=== PATIENT | male | born 1955 | race Caucasian/White ===

== ENCOUNTER 2016-12-15 11:02 | Emergency (ER) | payer MEDICARE, OTHER ==
[~2016-12-15] VITALS: Ht 182.9 cm; Wt 81.6 kg
[~2016-12-15 11:02] MED LIST: ATEN50TA PO; CLON0.1T12 PO; FENT1PAT21 TD; HYDR4TAB PO; LISI-334 PO; LISI10TA2 PO; MAGN400O4 PO; MORP15TA PO; NAPR500T3 PO; SIMV20TA3 PO; VALIUM10 MG PO; [UNRECOGNIZED DRUG - CODE] BC
--- NOTE | 2016-12-15 12:23 | PHYS DOC ---
Past Medical History Past Medical History: High Cholesterol, Hypertension, Migraines, Other Additional Past Medical Histor: CHRONIC BACK PAIN, Sciatica Past Surgical History: Other Additional Past Surgical Histo: lt ARM, BACK X 8, Sinus surgery Alcohol Use: None Drug Use: None Adult General Chief Complaint Chief Complaint: BACK PAIN OR INJURY HPI HPI Patient is a 61 year old male who presents with acute on chronic low back pain. Patient has had low back pain for the past 25 years, for which she says he has undergone surgeries. He says last night he fell down 7 steps ~8pm after his feet got caught up. Denies hitting his head or loss of consciousness. He has been ambulatory since. He presents now with sharp lower back pain. He says he has been taking Robaxin and naproxen with insufficient relief. No numbness or weakness, no loss of bowel or bladder continence. No other acute complaints. Review of Systems Review of Systems Constitutional: Denies fever or chills Respiratory: Denies cough or shortness of breath Cardiovascular: Denies chest pain GI: Denies abdominal pain, nausea, vomiting, or diarrhea Musculoskeletal: Acute on chronic lumbar pain Neurologic: Denies headache, focal weakness or sensory changes. No loss of bowel /bladder continence Current Medications Current Medications Current Medications Medications (Trade) Dose Ordered Sig/Nicolas Start Time Stop Time Status Last Admin Dose Admin Ketorolac Tromethamine (Toradol Im) 30 mg 1X ONCE 12/15/16 13:00 12/15/16 13:01 DC 12/15/16 12:37 30 MG Morphine Sulfate 6 mg 1X ONCE 12/15/16 14:00 12/15/16 14:01 DC Oxycodone/ Acetaminophen (Percocet 5/325) 2 tab 1X ONCE 12/15/16 13:00 12/15/16 13:01 DC 12/15/16 12:36 2 TAB Allergies Allergies Allergies Coded Allergies Type Severity Reaction Last Updated Verified nafcillin Allergy Severe Anaphylaxis 01/30/14 Yes cyclobenzaprine Allergy Intermediate blurs eyes 02/10/16 Yes dextromethorphan Allergy Intermediate Rash 01/30/14 Yes ibuprofen Allergy Intermediate Rash 01/30/14 Yes Physical Exam Physical Exam Constitutional: Well developed, well nourished, no acute distress, non-toxic appearance HENT: Normocephalic, atraumatic, bilateral external ears normal Eyes: PERRL, EOMI, conjunctiva normal, no discharge Neck: Normal range of motion, no stridor Cardiovascular: Heart rate normal, regular rhythm, no murmur Lungs & Thorax: Bilateral breath sounds clear to auscultation Abdomen: Bowel sounds normal, soft, non-distended, no TTP Skin: Warm, dry, no erythema, no rash Back: Generalized lumbar tenderness on palpation, midline scar noted, no stepoff or deformity, no skin lesion Extremities: No obvious deformity, no edema. Extremities examined without TTP, bruising, or deformity noted Neurologic: Alert and oriented X 3, GCS 15, strength intact and symmetrical throughout in BLE, sensation to light touch intact throughout Current Patient Data Vital Signs Vital Signs Date Time Temp Pulse Resp B/P Pulse Ox O2 Delivery O2 Flow Rate FiO2 12/15/16 11:09 97.8 81 20 98 Room Air 97.8 EKG EKG [] Radiology/Procedures Radiology/Procedures X-ray lumbar spine: IMPRESSION: 1. Previous posterior spinal fusion and instrumentation from L4 through S1. 2. No acute bony abnormality is detected. Course & Med Decision Making Course & Med Decision Making Pertinent Labs and Imaging studies reviewed. (See chart for details) Patient is 61-year-old male who presents with acute on chronic low back pain after fall last night. No red flag symptoms or findings on physical exam. Will check x-ray of lumbar spine. Oral pain meds and shot of toradol ordered for pain control. Imaging results as above. Discussed results with patient, who continues to have pain. IM morphine ordered. Patient requesting admission for pain control; I discussed the case with Dr. Fabian, patient's PCP, we will not admit at this time. Patient discharged home with course of pain medication, instructions for follow-up, return precautions. Dragon Disclaimer Dragon Disclaimer This electronic medical record was generated, in whole or in part, using a voice recognition dictation system. Departure Departure Impression: Primary Impression: Acute exacerbation of chronic low back pain Disposition: 01 HOME, SELF-CARE Condition: STABLE Referrals: ROSARIO FABIAN MD (PCP) Patient Instructions: Chronic Back Pain Additional Instructions: Thank you for allowing us to provide care today in the Emergency Department. Take the provided medication as directed. Use caution after taking this medication as it can make you drowsy. Schedule a follow up appointment with your primary care doctor. Return promptly to the Emergency Department if you develop any new or concerning symptoms. Scripts Oxycodone/Apap 5-325 (Percocet 5-325 Mg Tablet)1 Each Tablet1 Tab PO PRN Q6HRS PRN PAIN #15 TAB Ref 0 Prov:LEOLA STARK MD 12/15/16 LEOLA STARK MD Dec 15, 2016 12:23
[2016-12-15] MEDS ORDERED: OXYCODONE/APAP 5/325 TABLET. PO ONE (13:00)
[2016-12-15] MEDS ORDERED: KETOROLAC TROMETHAMINE 60 MG/2 ML SYRINGE. IM ONE (13:00)
--- NOTE | 2016-12-15 13:10 | RAD ---
Lumbar spine, 3 views, 12/15/2016: History: Low back pain after fall Comparison is made to a study from 11/20/2016. There are bilateral pedicle screws in place at L4, L5 and S1 attached to longitudinally oriented posterior fixation rods. These fixation devices are unchanged. The lumbar vertebral heights are well-maintained. There is moderate disc space narrowing at L4-5 and L5-S1. There are mild scattered spurs in the upper lumbar spine. No acute fracture or dislocation is identified. IMPRESSION: 1. Previous posterior spinal fusion and instrumentation from L4 through S1. 2. No acute bony abnormality is detected.
[2016-12-15] MEDS ORDERED: MORPHINE SULFATE 4 MG/ML DISP.SYRIN. IM ONE (14:00)
[2016-12-15] MEDS ORDERED: OXYC-323 PO (14:20)
[2016-12-15 14:46] VITALS: BP 167/92
== END 2016-12-15 14:48 | disposition home or self-care (01) ==
LOC: ER 11:02
DX: G89.29 Other chronic pain (principal); M54.5 Low back pain; I10 Essential (primary) hypertension; E78.00 Pure hypercholesterolemia, unspecified; G43.909 Migraine, unspecified, not intractable, without status migrainosus; Z98.890 Other specified postprocedural states; Z88.1 Allergy status to other antibiotic agents; Z88.8 Allergy status to other drugs, medicaments and biological substances; W10.9XXA Fall (on) (from) unspecified stairs and steps, initial encounter; Y93.89 Activity, other specified; Y99.8 Other external cause status; Y92.89 Other specified places as the place of occurrence of the external cause
CPT/HCPCS: 72100; 96372; 99284; J1885

== ENCOUNTER 2016-12-16 10:53 | Emergency (ER) | payer MEDICARE, OTHER ==
[~2016-12-16] VITALS: Ht 182.9 cm; Wt 81.6 kg
[~2016-12-16 10:53] MED LIST changes: +OXYC-323 PO
[2016-12-16 11:15] VITALS: BP 179/69
--- NOTE | 2016-12-16 11:49 | PHYS DOC ---
Past Medical History Past Medical History: High Cholesterol, Hypertension, Migraines, Other Additional Past Medical Histor: CHRONIC BACK PAIN, Sciatica Past Surgical History: Other Additional Past Surgical Histo: lt ARM, BACK X 8, Sinus surgery Alcohol Use: None Drug Use: None Adult General Chief Complaint Chief Complaint: LOWER BACK PAIN OR INJURY [facility] HPI Patient is a 61 year old male presents to the emergency department stating that he had fallen down 7 steps last night and he was seen here yesterday for back pain and discomfort x-rays were negative. Patient had been sent home on the cassette and had Robaxin at home. Patient states his pain has not been relieved. He states that he normally has numbness and tingling down into his extremities. He is sitting crosslegged in the room with the flank over the right. Patient is able to do straight leg raises with pain noted. Peripheral pulses 2+ cap refill brisk less than 2 seconds. Patient is able to ambulate although slowly. Review of Systems Review of Systems Constitutional: Denies fever or chills [] Eyes: Denies change in visual acuity, redness, or eye pain [] HENT: Denies nasal congestion or sore throat [] Respiratory: Denies cough or shortness of breath [] Cardiovascular: No additional information not addressed in HPI [] GI: Denies abdominal pain, nausea, vomiting, bloody stools or diarrhea [] : Denies dysuria or hematuria [] Musculoskeletal: c/o back pain denies joint pain [] Integument: Denies rash or skin lesions [] Neurologic: Denies headache, focal weakness or sensory changes [] Allergies Allergies Allergies Coded Allergies Type Severity Reaction Last Updated Verified nafcillin Allergy Severe Anaphylaxis 01/30/14 Yes cyclobenzaprine Allergy Intermediate blurs eyes 02/10/16 Yes dextromethorphan Allergy Intermediate Rash 01/30/14 Yes ibuprofen Allergy Intermediate Rash 01/30/14 Yes Physical Exam Physical Exam Constitutional: Well developed, well nourished, no acute distress, non-toxic appearance. [] HENT: Normocephalic, atraumatic, bilateral external ears normal, oropharynx moist, no oral exudates, nose normal. [] Eyes: PERRLA, EOMI, conjunctiva normal, no discharge. [] Neck: Normal range of motion, no tenderness, supple, no stridor. [] Cardiovascular:Heart rate regular rhythm, no murmur [] Lungs & Thorax: Bilateral breath sounds clear to auscultation [] Skin: Warm, dry, no erythema, no rash. [] Back: Patient with lower lumbar back pain. Unable to completely assess the patient as I'm attempting to palpate the area patient jumps before touching him stating that it hurts. Patient is able to do straight leg raises with increased pain noted with right leg raise. Peripheral pulses 2+ cap refill brisk less than 2 seconds. Extremities: No tenderness, no cyanosis, no clubbing, ROM intact, no edema. [] Neurologic: Alert and oriented X 3, normal motor function, normal sensory function, no focal deficits noted. [] Psychologic: Affect normal, judgement normal, mood normal. [] Current Patient Data Vital Signs Vital Signs Date Time Temp Pulse Resp B/P Pulse Ox O2 Delivery O2 Flow Rate FiO2 12/16/16 11:15 97.3 79 18 179/69 97 Room Air 97.3 EKG EKG [] Radiology/Procedures Radiology/Procedures [facility] [address] [place] [address] IMAGING REPORT Signed PATIENT: TRUPTI BUSCH ACCOUNT: [id number] : 1955 LOCATION: ER AGE: 61 SEX: M EXAM STATUS: REG ER ORD. PHYSICIAN: BLAS DENNIS NP REASON: pain in the spine fell yesterday PROCEDURE: LUMBAR SPINE WO CONTRAST CT of the lumbar spine without contrast, 12/16/2016: History: Fall, back pain Noncontrast scans were obtained with multiplanar reconstructions produced. There as been a previous lower lumbar spinal fusion with bilateral pedicle screws at L4, L5 and S1 attached to bilateral posterior fixation rods. The vertebral body alignment through this region is normal. No acute fracture or dislocation is identified. There are mild scattered spurs and moderate degenerative changes involving facet joints in the upper lumbar spine. The central spinal canal and neural foramina are well maintained at L1-2 and L2-3. At L3-4 there is mild broad-based posterior disc bulging. The central spinal canal and neural foramina are well maintained. At L4-5 and L5-S1 the disks and central spinal canal are poorly defined due to artifacts are arising from the fixation devices. IMPRESSION: 1. Previous posterior spinal fusion and instrumentation from L4 through S1. 2. Mild scattered degenerative changes in the upper lumbar spine. 3. No acute bony abnormality is detected. PQRS Compliance Statement: One or more of the following individualized dose reduction techniques were utilized for this examination: 1. Automated exposure control 2. Adjustment of the mA and/or kV according to patient size 3. Use of iterative reconstruction technique DICTATED and SIGNED BY: RAMONA BORGES MD DATE: 12/16/16 5208 CC: ROSARIO FABIAN MD; BLAS DENNIS NP ~ [] Course & Med Decision Making Course & Med Decision Making Pertinent Labs and Imaging studies reviewed. (See chart for details) She had driven himself here to the emergency department. He states he has no one that can come pick him up. 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 CT scan was negative for any acute abnormalities. Patient states that he had does have pain medication at home he does have muscle relaxers that he can take at home as well. We'll recommend patient to place ice packs on the area follow-up with his primary care physician in the next 2-3 days. She was also provided with the results of the CT scan patient agrees with discharge instructions treatment regimens and follow-up recommendations. Dragon Disclaimer Dragon Disclaimer This electronic medical record was generated, in whole or in part, using a voice recognition dictation system. Departure Departure Impression: Primary Impression: Chronic back pain Disposition: HOME, SELF-CARE Condition: STABLE Referrals: ROSARIO FABIAN MD (PCP) Patient Instructions: Back Pain, Adult, [id number] Additional Instructions: CT results of your back was negative for any bony abnormalities. Continue take her home medications as prescribed. You may use ice packs to the areas of discomfort on 20 minutes off 20 minutes several times a day. Follow-up with your primary care physician in the next 2-3 days. Return back to emergency prior signs symptoms of become worse. BLAS DENNIS NP Dec 16, 2016 11:49
--- NOTE | 2016-12-16 12:47 | RAD ---
CT of the lumbar spine without contrast, 12/16/2016: History: Fall, back pain Noncontrast scans were obtained with multiplanar reconstructions produced. There as been a previous lower lumbar spinal fusion with bilateral pedicle screws at L4, L5 and S1 attached to bilateral posterior fixation rods. The vertebral body alignment through this region is normal. No acute fracture or dislocation is identified. There are mild scattered spurs and moderate degenerative changes involving facet joints in the upper lumbar spine. The central spinal canal and neural foramina are well maintained at L1-2 and L2-3. At L3-4 there is mild broad-based posterior disc bulging. The central spinal canal and neural foramina are well maintained. At L4-5 and L5-S1 the disks and central spinal canal are poorly defined due to artifacts are arising from the fixation devices. IMPRESSION: 1. Previous posterior spinal fusion and instrumentation from L4 through S1. 2. Mild scattered degenerative changes in the upper lumbar spine. 3. No acute bony abnormality is detected. PQRS Compliance Statement: One or more of the following individualized dose reduction techniques were utilized for this examination: 1. Automated exposure control 2. Adjustment of the mA and/or kV according to patient size 3. Use of iterative reconstruction technique
== END 2016-12-16 13:10 | disposition home or self-care (01) ==
LOC: ER 10:55
DX: G89.29 Other chronic pain (principal); M54.5 Low back pain; E78.00 Pure hypercholesterolemia, unspecified; I10 Essential (primary) hypertension; M54.30 Sciatica, unspecified side; Z88.0 Allergy status to penicillin; Z88.6 Allergy status to analgesic agent; Z88.8 Allergy status to other drugs, medicaments and biological substances; W10.9XXA Fall (on) (from) unspecified stairs and steps, initial encounter; Y93.89 Activity, other specified; Y92.89 Other specified places as the place of occurrence of the external cause; Y99.8 Other external cause status
CPT/HCPCS: 72131; 99284-25

== ENCOUNTER 2016-12-17 11:56 | Emergency (ER) | payer MEDICARE, OTHER ==
[~2016-12-17] VITALS: Ht 182.9 cm; Wt 81.6 kg
[2016-12-17 14:13] VITALS: BP 181/102
--- NOTE | 2016-12-17 14:14 | PHYS DOC ---
Past Medical History Past Medical History: High Cholesterol, Hypertension, Migraines, Other Additional Past Medical Histor: CHRONIC BACK PAIN, Sciatica Past Surgical History: Other Additional Past Surgical Histo: lt ARM, BACK X 8, Sinus surgery Alcohol Use: None Drug Use: None Adult General Chief Complaint Chief Complaint: PAIN CONTROL HPI HPI Patient is a 61 year old male with history of hypertension high cholesterol and chronic back pain who presents today with chronic back pain. Patient denies any injuries. He states the pain radiates to bilateral lower extremities. Denies any loss of bowel bladder function. Patient clearly tells me he is here to be admitted. Patient states he used to follow-up with the pain clinic but they did not do anything for him. He states they have given him oxycodone, Dilaudid, and the medication did nothing for him. Off note patient was seen in the ED yesterday12/16/2016, 12/15/2016 and 11/18/2016. In one of the views it patient was documented as stating he'll come to the ED until he gets admitted. Review of Systems Review of Systems Constitutional: Denies fever or chills [] Eyes: Denies change in visual acuity, redness, or eye pain [] : Denies dysuria or hematuria [] Musculoskeletal: back pain Integument: Denies rash or skin lesions [] Neurologic: Denies headache, focal weakness or sensory changes [] Endocrine: Denies polyuria or polydipsia [] Current Medications Current Medications Current Medications Medications (Trade) Dose Ordered Sig/Nicolas Start Time Stop Time Status Last Admin Dose Admin Diazepam (Valium) 10 mg 1X ONCE 12/17/16 14:15 12/17/16 14:16 12/17/16 14:11 10 MG Morphine Sulfate 6 mg 1X ONCE 12/17/16 14:15 12/17/16 14:16 12/17/16 14:12 6 MG Allergies Allergies Allergies Coded Allergies Type Severity Reaction Last Updated Verified nafcillin Allergy Severe Anaphylaxis 01/30/14 Yes cyclobenzaprine Allergy Intermediate blurs eyes 02/10/16 Yes dextromethorphan Allergy Intermediate Rash 01/30/14 Yes ibuprofen Allergy Intermediate Rash 01/30/14 Yes Physical Exam Physical Exam Constitutional: Well developed, well nourished, no acute distress, non-toxic appearance. [] HENT: Normocephalic, atraumatic, bilateral external ears normal, oropharynx moist, no oral exudates, nose normal. [] Skin: Warm, dry, no erythema, no rash. [] Back: Old healed surgical incision to the lower lumbar region, tenderness on palpation of the incisional site as well as paraspinal tenderness to bilateral low lumbar region, no CVA tenderness. [] Extremities: No tenderness, no cyanosis, no clubbing, ROM intact, no edema. [] Neurologic: Alert and oriented X 3, normal motor function, normal sensory function, no focal deficits noted. [] Psychologic: Affect normal, judgement normal, mood normal. [] Current Patient Data Vital Signs Vital Signs Date Time Temp Pulse Resp B/P Pulse Ox O2 Delivery O2 Flow Rate FiO2 12/17/16 14:12 18 96 Room Air 12/17/16 12:13 97.6 84 160/107 97.6 EKG EKG [] Radiology/Procedures Radiology/Procedures [] Course & Med Decision Making Course & Med Decision Making Pertinent Labs and Imaging studies reviewed. (See chart for details) Patient is in the ED with chronic back pain, no injuries. He was seen in the ED yesterday which is 12/16 2016, he was also seen in the ED December 15 in November 18 2016 for the same complaints. Today he states is here to be admitted. He used to follow-up with the pain clinic but states they were not doing anything for him despite giving him pain medicines including oxycodone and Dilaudid. I contacted his PCPs office, spoke with Dr. La, she stated patient was put on Suboxone. She stated patient should be discharged and follow-up as an outpatient either with the PCP or the pain clinic. Patient was given morphine 6 mg IM and Valium 10 mg by mouth and discharge. He was instructed to follow-up with Dr. Jana Fabian the PCP or the pain clinic as soon as possible. Dragon Disclaimer Dragon Disclaimer This electronic medical record was generated, in whole or in part, using a voice recognition dictation system. Departure Departure Impression: Primary Impression: Chronic back pain Disposition: HOME, SELF-CARE Condition: STABLE Referrals: ROSARIO FABIAN MD (PCP) Called Dr. Jana Fabian or the pain clinic and follow-up as soon as possible Patient Instructions: Back Pain, Adult Additional Instructions: You were seen for chronic back pain. Follow-up with your doctor as soon as possible. You can either call Dr. Jana Fabian or the pain clinic and follow-up as soon as possible. Problem Qualifiers Primary Impression: Chronic back pain Back pain location: low back pain Back pain laterality: bilateral Sciatica presence: with sciatica Sciatica laterality: bilateral sciatica Qualified Code: M54.42 - Lumbago with sciatica, left side MARYAM FARMER APRN Dec 17, 2016 14:14
[2016-12-17] MEDS ORDERED: MORPHINE SULFATE 10 MG/ML VIAL. IM ONE (14:15)
[2016-12-17] MEDS ORDERED: DIAZEPAM 5 MG TABLET PO ONE (14:15)
== END 2016-12-17 14:20 | disposition home or self-care (01) ==
LOC: ER 11:56
DX: M54.42 Lumbago with sciatica, left side (principal); G89.29 Other chronic pain; I10 Essential (primary) hypertension; E78.00 Pure hypercholesterolemia, unspecified; G43.909 Migraine, unspecified, not intractable, without status migrainosus; Z88.0 Allergy status to penicillin; Z88.6 Allergy status to analgesic agent; Z88.8 Allergy status to other drugs, medicaments and biological substances
CPT/HCPCS: 96372; 99284; J2270

== ENCOUNTER 2016-12-18 10:42 | Emergency (ER) | payer MEDICARE, OTHER ==
[~2016-12-18] VITALS: Ht 182.9 cm; Wt 85.5 kg
[2016-12-18 11:51] VITALS: BP 153/106
[2016-12-18] MEDS ORDERED: DIAZEPAM 5 MG TABLET PO ONE (12:00)
[2016-12-18] MEDS ORDERED: MORPHINE SULFATE 4 MG/ML DISP.SYRIN. IM ONE (12:00)
--- NOTE | 2016-12-18 12:15 | PHYS DOC ---
Past Medical History Past Medical History: High Cholesterol, Hypertension, Migraines, Other Additional Past Medical Histor: CHRONIC BACK PAIN, Sciatica Past Surgical History: Other Additional Past Surgical Histo: lt ARM, BACK X 8, Sinus surgery,FOOT Alcohol Use: None Drug Use: None Adult General Chief Complaint Chief Complaint: LOWER BACK PAIN OR INJURY HPI HPI Patient is a 61 year old male with history of hypertension high cholesterol chronic back pain who presents today with chronic back pain. Patient states the pain radiates to bilateral lower extremities. Patient was in the ED yesterday, the day before and multiple other times and has a plan to come to the ED every day until he gets admitted. He clearly states he wants to be admitted today. Review of Systems Review of Systems Constitutional: Denies fever or chills [] Eyes: Denies change in visual acuity, redness, or eye pain [] Musculoskeletal: Chronic back pain Integument: Denies rash or skin lesions [] Neurologic: Denies headache, focal weakness or sensory changes [] Endocrine: Denies polyuria or polydipsia [] Current Medications Current Medications Current Medications Medications (Trade) Dose Ordered Sig/Nicolas Start Time Stop Time Status Last Admin Dose Admin Diazepam (Valium) 10 mg 1X ONCE 12/18/16 12:00 12/18/16 12:01 DC Morphine Sulfate 6 mg 1X ONCE 12/18/16 12:00 12/18/16 12:01 DC Allergies Allergies Allergies Coded Allergies Type Severity Reaction Last Updated Verified nafcillin Allergy Severe Anaphylaxis 01/30/14 Yes cyclobenzaprine Allergy Intermediate blurs eyes 02/10/16 Yes dextromethorphan Allergy Intermediate Rash 01/30/14 Yes ibuprofen Allergy Intermediate Rash 01/30/14 Yes Physical Exam Physical Exam Constitutional: Well developed, well nourished, no acute distress, non-toxic appearance. [] Abdomen: Bowel sounds normal, soft, no tenderness, no masses, no pulsatile masses. [] Skin: Warm, dry, no erythema, no rash. [] Back: Old healed surgical incision noted on the lower lumbar spine, tenderness to the surgical incision area on the lower lumbar region, no CVA tenderness. [] Extremities: No tenderness, no cyanosis, no clubbing, ROM intact, no edema. [] Neurologic: Alert and oriented X 3, normal motor function, normal sensory function, no focal deficits noted. [] Psychologic: Affect normal, judgement normal, mood normal. [] Current Patient Data Vital Signs Vital Signs Date Time Temp Pulse Resp B/P Pulse Ox O2 Delivery O2 Flow Rate FiO2 12/18/16 11:51 97.7 99 16 153/106 98 Room Air 97.7 EKG EKG [] Radiology/Procedures Radiology/Procedures [] Course & Med Decision Making Course & Med Decision Making Pertinent Labs and Imaging studies reviewed. (See chart for details) Patient is in the ED with chronic back pain. He was in the ED yesterday and the day before. He has vowed to come to the ED every day until he gets admitted. I spoke with patient's doctor yesterday who requested this patient to follow-up in the office and not admitted. Patient states he has an appointment on Wednesday with the PCP, he also follows up with the pain clinic and has an appointment on Wednesday. Patient was discharged. He was encouraged to follow up with the PCP and pain clinic. Dragon Disclaimer Dragon Disclaimer This electronic medical record was generated, in whole or in part, using a voice recognition dictation system. Departure Departure Impression: Primary Impression: Chronic back pain Disposition: HOME, SELF-CARE Condition: STABLE Referrals: ROSARIO FBAIAN MD (PCP) follow up with Dr. Fabian on Wednesday Patient Instructions: Back Pain, Adult Additional Instructions: You were seen for chronic back pain. Please follow-up with your doctor tomorrow Problem Qualifiers Primary Impression: Chronic back pain Back pain location: low back pain Back pain laterality: bilateral Sciatica presence: with sciatica Sciatica laterality: bilateral sciatica Qualified Code: M54.42 - Lumbago with sciatica, left side NOLBERTOALICEMARYAM Allen APRN Dec 18, 2016 12:15
== END 2016-12-18 12:58 ==
LOC: ER 10:42
DX: G89.29 Other chronic pain (principal); M54.5 Low back pain; I10 Essential (primary) hypertension; M54.30 Sciatica, unspecified side; E78.00 Pure hypercholesterolemia, unspecified; G43.909 Migraine, unspecified, not intractable, without status migrainosus; Z88.8 Allergy status to other drugs, medicaments and biological substances; Z88.6 Allergy status to analgesic agent
CPT/HCPCS: 99284

== ENCOUNTER 2016-12-19 12:21 | Emergency (ER) | payer MEDICARE, OTHER ==
[2016-12-19 12:34] VITALS: BP 159/119
--- NOTE | 2016-12-19 12:39 | PHYS DOC ---
Past Medical History Past Medical History: High Cholesterol, Hypertension, Migraines, Other Additional Past Medical Histor: CHRONIC BACK PAIN, Sciatica Past Surgical History: Other Additional Past Surgical Histo: lt ARM, BACK X 8, Sinus surgery,FOOT Alcohol Use: None Drug Use: None Adult General Chief Complaint Chief Complaint: LOWER BACK PAIN OR INJURY HPI HPI Patient is a 61 year old male who presents with continued chronic low back pain , constant, worse with movement, achy and shooting. States this is exactly like his back pain for the past 25 years. Denies new injury since a few days ago. Denies saddle anesthesia, bowel or bladder dysfunction, numbness, tingling, weakness. Of note, he has daily visits over the past few days stating he will continue to return to the ED until he gets admitted for his chronic low back pain. States it is unmanaged in an outpatient setting and he has tried many different narcotics and muscle relaxers. His PCP has been contacted during some of these visits and he is to follow up in her clinic 2 days from now. Review of Systems Review of Systems Constitutional: Denies fever or chills [] Eyes: Denies change in visual acuity, redness, or eye pain [] HENT: Denies nasal congestion or sore throat [] Respiratory: Denies cough or shortness of breath [] Cardiovascular: No additional information not addressed in HPI [] GI: Denies abdominal pain, nausea, vomiting, bloody stools or diarrhea [] : Denies dysuria or hematuria [] Musculoskeletal: Denies joint pain [] Integument: Denies rash or skin lesions [] Neurologic: Denies headache, focal weakness or sensory changes [] Endocrine: Denies polyuria or polydipsia [] Allergies Allergies Allergies Coded Allergies Type Severity Reaction Last Updated Verified nafcillin Allergy Severe Anaphylaxis 01/30/14 Yes cyclobenzaprine Allergy Intermediate blurs eyes 02/10/16 Yes dextromethorphan Allergy Intermediate Rash 01/30/14 Yes ibuprofen Allergy Intermediate Rash 01/30/14 Yes Physical Exam Physical Exam Constitutional: Well developed, well nourished, no acute distress, non-toxic appearance. [] HENT: Normocephalic, atraumatic, bilateral external ears normal, oropharynx moist, nose normal. [] Eyes: PERRLA, EOMI. [] Neck: Normal range of motion, supple. [] Cardiovascular:Heart rate regular rhythm [] Lungs & Thorax: Bilateral breath sounds clear to auscultation [] Abdomen: Bowel sounds normal, soft, no tenderness. [] Skin: Warm, dry, no erythema, no rash. [] Back: No CVA tenderness. Has tenderness about lumbar surgical scar and bilateral paraspinal muscles. [] Extremities: No tenderness, ROM intact, no edema. Equal dp pulses. [] Neurologic: Alert and oriented X 3, normal motor function, normal sensory function, no focal deficits noted. [] Psychologic: Affect normal, judgement normal, mood normal. [] Current Patient Data Vital Signs Vital Signs Date Time Temp Pulse Resp B/P Pulse Ox O2 Delivery O2 Flow Rate FiO2 12/19/16 12:34 99.1 95 20 159/119 97 Room Air 99.1 Course & Med Decision Making Course & Med Decision Making Pertinent Labs and Imaging studies reviewed. (See chart for details) Reviewed prior visits from the past 4 days including XRs and CT l-spine. Discussed that the ED is not the avenue to treat chronic pain, so no pain medication was offered during this visit. Discussed he should follow up on an outpatient basis as has been scheduled for him. Return precautions given. He understood. Dragon Disclaimer Dragon Disclaimer This electronic medical record was generated, in whole or in part, using a voice recognition dictation system. Departure Departure Impression: Primary Impression: Chronic back pain Disposition: 01 HOME, SELF-CARE Condition: STABLE Referrals: ROSARIO FABIAN MD (PCP) Patient Instructions: Back Pain, Adult, [id number] Additional Instructions: Follow up with your primary care doctor. Return for any concerns. Problem Qualifiers Primary Impression: Chronic back pain Back pain location: low back pain Back pain laterality: midline Sciatica presence: without sciatica Qualified Code: M54.5 - Low back pain Sena HATFIELD MD Dec 19, 2016 12:39
== END 2016-12-19 12:44 | disposition home or self-care (01) ==
LOC: ER 12:21
DX: G89.29 Other chronic pain (principal); M54.5 Low back pain; I10 Essential (primary) hypertension; E78.00 Pure hypercholesterolemia, unspecified; G43.909 Migraine, unspecified, not intractable, without status migrainosus; Z98.890 Other specified postprocedural states; Z88.1 Allergy status to other antibiotic agents; Z88.6 Allergy status to analgesic agent; Z88.8 Allergy status to other drugs, medicaments and biological substances
CPT/HCPCS: 99284

== ENCOUNTER 2017-10-12 08:38 | Inpatient (IN) | payer MEDICARE, OTHER ==
[2017-10-12] MEDS: MORPHINE SULFATE 10 MG/ML VIAL. IV (09:15)
[2017-10-12] MEDS ORDERED: ONDANSETRON PF 4 MG/2 ML VIAL. IV (11:15)
[2017-10-12] MEDS: MORPHINE SULFATE 4 MG/ML DISP.SYRIN. IV ×4 (14:11→22:43)
[2017-10-12] MEDS: hydrALAZINE 20 MG/ML VIAL. IVP (23:44)
[2017-10-13] MEDS: MORPHINE SULFATE 4 MG/ML DISP.SYRIN. IV ×10 (00:48→22:24)
[2017-10-13 05:54] LABS: ADD MAN DIFF? NO
[2017-10-13 06:09] LABS: BASO % 1 % (0-3); EOS % 1 % (0-3); HEMATOCRIT 41.8 % (39.0-53.0); HEMOGLOBIN 14.1 g/dL (13.0-17.5); LYMPH # 0.8 x10^3/uL (1.0-4.8); LYMPH % 15 % (24-48); MEAN CORPUSCULAR HEMOGLOBIN 30 pg (25-35); MEAN CORPUSCULAR HGB CONC 34 g/dL (31-37); MEAN CORPUSCULAR VOLUME 89 fL (79-100); MONO % 14 % (0-9); NEUT % 70 % (31-73); PLATELET COUNT 199 x10^3/uL (140-400); RED BLOOD COUNT 4.68 x10^6/uL (4.30-5.70); RED CELL DISTRIBUTION WIDTH 12.6 % (11.5-14.5); WHITE BLOOD COUNT 5.6 x10^3/uL (4.0-11.0)
[2017-10-13 06:27] LABS: ALBUMIN 3.7 g/dL (3.4-5.0); ALK PHOS 106 U/L (46-116); ALT (SGPT) 29 U/L (16-63); ANION GAP 10 (6-14); AST (SGOT) 23 U/L (15-37); BLOOD UREA NITROGEN 12 mg/dL (8-26); BUN/CREATININE RATIO 10 (6-20); CALCIUM 8.3 mg/dL (8.5-10.1); CARBON DIOXIDE 28 mmol/L (21-32); CHLORIDE 100 mmol/L (98-107); CREATININE 1.2 mg/dL (0.7-1.3); GLUCOSE 118 mg/dL (70-99); POTASSIUM 3.9 mmol/L (3.5-5.1); SODIUM 138 mmol/L (136-145); TOTAL BILIRUBIN 0.3 mg/dL (0.2-1.0); TOTAL PROTEIN 7.5 g/dL (6.4-8.2)
[2017-10-13] MEDS ORDERED: ACETAMINOPHEN 325 MG TABLET. PO (08:15)
[2017-10-13] MEDS ORDERED: METHOCARBAMOL 500 MG TABLET PO (08:15)
[2017-10-13] MEDS: FINASTERIDE 5 MG TABLET. PO (08:19)
[2017-10-13] MEDS: METOPROLOL TART IMMED RELEASE 50 MG TABLET. PO ×2 (08:19→20:24)
[2017-10-13] MEDS: amLODIPine BESYLATE 10 MG TABLET PO (08:19)
[2017-10-13] MEDS: PROMETH/CODEINE 6.25/10MG 5 ML SYRUP. PO ×2 (13:28→20:23)
[2017-10-13] MEDS: hydrALAZINE 20 MG/ML VIAL. IVP (15:26)
[2017-10-13] MEDS: SIMVASTATIN 20 MG TABLET PO (20:24)
[2017-10-13 20:40] LABS: OBC FLU VALID
[2017-10-14] MEDS: MORPHINE SULFATE 4 MG/ML DISP.SYRIN. IV ×11 (00:41→22:27)
[2017-10-14] MEDS: PROMETH/CODEINE 6.25/10MG 5 ML SYRUP. PO ×4 (03:11→22:27)
[2017-10-14] MEDS: hydrALAZINE 20 MG/ML VIAL. IVP (03:48)
[2017-10-14] MEDS: amLODIPine BESYLATE 10 MG TABLET PO (09:46)
[2017-10-14] MEDS: FINASTERIDE 5 MG TABLET. PO (09:47)
[2017-10-14] MEDS: METOPROLOL TART IMMED RELEASE 50 MG TABLET. PO ×2 (09:47→20:18)
[2017-10-14] MEDS: hydroCHLOROthiazide 12.5 MG CAPSULE PO (09:47)
[2017-10-14] MEDS: ONDANSETRON ODT 4 MG TAB.RAPDIS. PO (13:46)
[2017-10-14] MEDS: SIMVASTATIN 20 MG TABLET PO (20:18)
[2017-10-15] MEDS: MORPHINE SULFATE 4 MG/ML DISP.SYRIN. IV ×12 (00:53→23:57)
[2017-10-15] MEDS: PROMETH/CODEINE 6.25/10MG 5 ML SYRUP. PO ×4 (04:33→23:55)
[2017-10-15] MEDS: FINASTERIDE 5 MG TABLET. PO (09:32)
[2017-10-15] MEDS: hydroCHLOROthiazide 12.5 MG CAPSULE PO (09:32)
[2017-10-15] MEDS: ONDANSETRON ODT 4 MG TAB.RAPDIS. PO (09:32)
[2017-10-15] MEDS: amLODIPine BESYLATE 10 MG TABLET PO (09:33)
[2017-10-15] MEDS: METOPROLOL TART IMMED RELEASE 50 MG TABLET. PO ×2 (09:33→21:53)
[2017-10-15] MEDS: SIMVASTATIN 20 MG TABLET PO (21:50)
[2017-10-16] MEDS: MORPHINE SULFATE 4 MG/ML DISP.SYRIN. IV ×6 (02:08→12:52)
[2017-10-16] MEDS: PROMETH/CODEINE 6.25/10MG 5 ML SYRUP. PO (06:09)
[2017-10-16] MEDS: METOPROLOL TART IMMED RELEASE 50 MG TABLET. PO (08:34)
[2017-10-16] MEDS: amLODIPine BESYLATE 10 MG TABLET PO (08:34)
[2017-10-16] MEDS: hydroCHLOROthiazide 12.5 MG CAPSULE PO (08:34)
[2017-10-16] MEDS: FINASTERIDE 5 MG TABLET. PO (08:35)
== END 2017-10-16 13:50 | disposition home or self-care (01) | DRG 551 ==
LOC: ER 08:38 → 5 SOUTH 11:07
DX: M51.26 Other intervertebral disc displacement, lumbar region (principal); J18.9 Pneumonia, unspecified organism; E78.00 Pure hypercholesterolemia, unspecified; E78.5 Hyperlipidemia, unspecified; G43.909 Migraine, unspecified, not intractable, without status migrainosus; G89.29 Other chronic pain; I10 Essential (primary) hypertension; Z82.49 Family history of ischemic heart disease and other diseases of the circulatory system; Z98.1 Arthrodesis status; Z88.8 Allergy status to other drugs, medicaments and biological substances; Z88.1 Allergy status to other antibiotic agents
CPT/HCPCS: 36415; 71020; 72131; 80053; 85025; 87804; 87804-59; 96374; 99285; 99285-25; G0378; J0360; J2270; Q0162

== ENCOUNTER 2018-10-13 10:22 | Day surgery (SDC) | payer MEDICARE, OTHER ==
[~2018-10-13] VITALS: Ht 177.8 cm; Wt 98.9 kg
[~2018-10-13 10:22] MED LIST changes: +AMLO10TA6 PO; +BUPIVACAINE 0.25% 50 ML VIAL. ONE; +FINA5TAB4 PO; +FLUT1DIS3 IH; +FURO40TA4 PO; +HEPARIN PF 500 UNIT/5 ML DISP.SYRIN. IV ONE; +HEPARIN for IV BOLUS 10,000 UNIT/10 ML VIAL. ONE; +HYDR12.575 PO; +HYDROmorphone 2 MG/ML VIAL IV PRN; +IV RINGERS,LACTATED 1000ML 1,000 ML IV SCH; +LEVO500T59 PO; +LIDOCAINE 1% PF 2 ML VIAL. ID PRN; -MAGN400O4 PO; +MAGN400O7 PO; +METH500T7 PO; +MONT10TA9 PO; +MORPHINE SULFATE 2 MG/ML VIAL. IV PRN; +NAPR-514 PO; -NAPR500T3 PO; +ONDANSETRON PF 4 MG/2 ML VIAL. IV PRN; -OXYC-323 PO; +OXYC1TAB15 PO; +PROCHLORPERAZINE 10 MG/2 ML VIAL. IV PRN; +PROM118S5 PO; +fentaNYL PF VIAL 100 MCG/2 ML VIAL IV PRN
[2018-10-13] MEDS ORDERED: ONDANSETRON PF 4 MG/2 ML VIAL. ONE (10:48)
[2018-10-13] MEDS ORDERED: fentaNYL PF VIAL 100 MCG/2 ML VIAL ONE (10:48)
[2018-10-13] MEDS ORDERED: MIDAZOLAM HCL/PF 2 MG/2 ML VIAL. ONE (10:48)
[2018-10-13] MEDS ORDERED: LIDOCAINE 2% PF Vial for OR 5 ML VIAL. ONE (10:48)
[2018-10-13] MEDS ORDERED: DEXAMETHASONE SOD PHOS 20 MG/5 ML VIAL. ONE (10:48)
[2018-10-13] MEDS ORDERED: PROPOFOL 20 ML IV ONE ×2 (10:48)
[2018-10-13] MEDS ORDERED: BUPIVACAINE MPF 0.25% 30 ML VIAL. INJ ONE (11:50)
--- NOTE | 2018-10-13 12:43 | PDOC4 ---
Operative Note Operative Note Date: 10/13/2018 Preoperative diagnosis: Venous insufficiency chronic pain Postoperative diagnosis: Same Procedure: Port-A-Cath placement right chest Surgeon: Matthias Specimen: None Dictation: Patient is a 63-year-old male is chronic pain on pain management regimen with narcotics has developed venous insufficiency unable to maintain IV. Procedure of Port-A-Cath placement was explained to the patient due to hours benefits were also discussed including bleeding infection Hospital pneumothorax alternatives to this procedure also discussed with the patient seemed understandable verbal and written consent had a procedure performed. Patient was taken to the operative embolus in supine position general anesthesia was initiated once patient was asleep and intubated his neck and chest were prepped and draped usual sterile fashion using ChloraPrep. Area on the right deltopectoral groove was injected with quarter percent Marcaine plain once this been injected incision with a 15 blade scalpel was carried down to the subcutaneous tissues and electrocautery by hemostasis down to the cephalic vein which was controlled proximally distally with silk ligatures quite a bit of small vein was partially opened with 11 blade scalpel multiple attempts to place a wire unsuccessful. At this point vein was tied off and the right subclavian was accessed via large-bore needle and a Salinger wire was placed this was checked under fluoroscopy showed be in the superior vena cava peel- away dilator was placed over the wire, dilator was removed and the catheter is placed through the peel-away which was then removed catheter placement was checked by fluoroscopy. Port was placed on the back end of the catheter this was placed within a pouch within the anterior chest this was sewn into place with 3-0 Prolene accessed with Gmoes needle which showed good blood return and easily flushed. Wound was then closed in 2 layers a deep layer running 3-0 Vicryl and skin Zaroxolyn for symptomatic to her Monocryl Mastisol Steri-Strips and island dressing were applied area. Patient was awakened and expanded in the operating room to recovery in stable condition all sponge instrument needle trauma counsellor status practice medical blood loss 10 mL. [place]NA ROMEO MD Oct 13, 2018 12:43 pm
--- NOTE | 2018-10-13 12:44 | DISCH ---
DISCHARGE INSTRUCTIONS Condition on Discharge Condition on Discharge: Stable Activity After Discharge Activity Instructions for Disc: Activity as tolerated Lifting Instructions after Dis: No heavy lifting Diet after Discharge Diet after Discharge: Regular Diet Texture: Regular Wound Incision Care Other wound/incision instructi: a shower in 24 hours Wound Care Equipment: Dressings (port needs to be flushed monthly) Contacting the DRRaquel after DC Call your doctor for: If your condition worsens Follow-Up Follow up with: Dr. Romeo in 2 weeks Treatment/Equipment after DC Adaptive Equipment Issued: None MONTANA ROMEO MD Oct 13, 2018 12:44 pm
[2018-10-13] MEDS ORDERED: cloNIDine HCL 0.1 MG TABLET PO ONE (13:30)
[2018-10-13] MEDS: HYDROmorphone 2 MG/ML VIAL IV PRN ×2 (13:30→14:05)
[2018-10-13 14:20] VITALS: BP 182/80
== END 2018-10-13 14:24 | disposition home or self-care (01) ==
LOC: SURG 10:22
PROVIDERS: ATTEND Surgery
DX: I87.2 Venous insufficiency (chronic) (peripheral) (principal); G89.29 Other chronic pain
CPT/HCPCS: 36556; A7015; C1788; J1100; J1170; J1644; J1956; J2001; J2250; J2405; J2704; J3010; J3490

== ENCOUNTER → 2019-02-17 | Outpatient (CLI) | payer MEDICARE, OTHER ==
[~2019-02-17] MED LIST changes: -AMLO10TA6 PO; +AMLO10TA8 PO; -BUPIVACAINE 0.25% 50 ML VIAL. ONE; -HEPARIN for IV BOLUS 10,000 UNIT/10 ML VIAL. ONE; -HYDROmorphone 2 MG/ML VIAL IV PRN; -IV RINGERS,LACTATED 1000ML 1,000 ML IV SCH; -LIDOCAINE 1% PF 2 ML VIAL. ID PRN; -MORPHINE SULFATE 2 MG/ML VIAL. IV PRN; -ONDANSETRON PF 4 MG/2 ML VIAL. IV PRN; -PROCHLORPERAZINE 10 MG/2 ML VIAL. IV PRN; -fentaNYL PF VIAL 100 MCG/2 ML VIAL IV PRN
[2019-02-17 11:35] VITALS: BP 139/101
[2019-02-17 12:17] LABS: BASO % 0 % (0-3); BILIRUBIN,URINE NEGATIVE (NEG); CLARITY,URINE CLEAR; COLOR,URINE YELLOW; EOS # 0.2 x10^3/uL (0.0-0.7); EOS % 3 % (0-3); HEMATOCRIT 43.4 % (39.0-53.0); LYMPH # 2.2 x10^3/uL (1.0-4.8); LYMPH % 26 % (24-48); MEAN CORPUSCULAR HEMOGLOBIN 30 pg (25-35); MEAN CORPUSCULAR HGB CONC 35 g/dL (31-37); MEAN CORPUSCULAR VOLUME 88 fL (79-100); MONO # 0.6 x10^3/uL (0.0-1.1); MONO % 8 % (0-9); NEUT # 5.3 x10^3uL (1.8-7.7); NEUT % 63 % (31-73); NITRITE,URINE NEGATIVE (NEG); PH,URINE 5.5; PLATELET COUNT 280 x10^3/uL (140-400); PROTEIN,URINE NEGATIVE (NEG-TRACE); RED BLOOD COUNT 4.95 x10^6/uL (4.30-5.70); RED CELL DISTRIBUTION WIDTH 13.6 % (11.5-14.5); WHITE BLOOD COUNT 8.3 x10^3/uL (4.0-11.0)
[2019-02-17 12:30] LABS: CALCIUM 9.3 mg/dL (8.5-10.1); CREATININE 1.3 mg/dL (0.7-1.3); GFR 55.2
[2019-02-17 12:32] LABS: HYALINE CASTS, URINE MANY /HPF; SQUAMOUS EPITHELIAL CELL,UR FEW /LPF
[2019-02-17 12:33] LABS: BACTERIA,URINE 0 /HPF (0-FEW); RBC,URINE 0 /HPF (0-2)
[2019-02-17 12:37] LABS: CHOLESTEROL/HDL RATIO 5.2; POTASSIUM 2.8 mmol/L (3.5-5.1)
== END | disposition home or self-care (01) ==
LOC: OPS 11:15
PROVIDERS: ATTEND Family Medicine
DX: N40.0 Benign prostatic hyperplasia without lower urinary tract symptoms (principal); I10 Essential (primary) hypertension; E78.00 Pure hypercholesterolemia, unspecified; Z12.5 Encounter for screening for malignant neoplasm of prostate; Z85.038 Personal history of other malignant neoplasm of large intestine; Z87.891 Personal history of nicotine dependence
CPT/HCPCS: 36415; 36591; 80048; 80061; 81001; 85025; 87086; 96374; 96523; G0103; G0463

== ENCOUNTER → 2019-03-24 | Outpatient (CLI) | payer MEDICARE, OTHER ==
[2019-02-17 11:35] VITALS: BP 139/101
[~2019-03-24] MED LIST changes: +MONT10TA49 PO; -MONT10TA9 PO
[2019-03-24 11:00] LABS: BASO # 0.1 x10^3/uL (0.0-0.2); BASO % 1 % (0-3); EOS # 0.2 x10^3/uL (0.0-0.7); EOS % 2 % (0-3); HEMATOCRIT 41.8 % (39.0-53.0); HEMOGLOBIN 14.2 g/dL (13.0-17.5); LYMPH # 1.5 x10^3/uL (1.0-4.8); LYMPH % 17 % (24-48); MEAN CORPUSCULAR HEMOGLOBIN 31 pg (25-35); MEAN CORPUSCULAR HGB CONC 34 g/dL (31-37); MEAN CORPUSCULAR VOLUME 90 fL (79-100); MONO # 0.6 x10^3/uL (0.0-1.1); MONO % 7 % (0-9); NEUT # 6.4 x10^3uL (1.8-7.7); NEUT % 73 % (31-73); PLATELET COUNT 276 x10^3/uL (140-400); RED BLOOD COUNT 4.65 x10^6/uL (4.30-5.70); RED CELL DISTRIBUTION WIDTH 13.3 % (11.5-14.5); WHITE BLOOD COUNT 8.7 x10^3/uL (4.0-11.0)
[2019-03-24 11:21] LABS: CALCIUM 9.1 mg/dL (8.5-10.1); CREATININE 1.1 mg/dL (0.7-1.3); POTASSIUM 4.4 mmol/L (3.5-5.1)
[2019-03-24 11:25] LABS: CHOLESTEROL/HDL RATIO 3.7
[2019-03-25 12:10] LABS: HEMOGLOBIN A1C 6.3 % (4.8-5.6)
== END | disposition home or self-care (01) ==
LOC: OPS 10:04
PROVIDERS: ATTEND Family Medicine
DX: Z45.2 Encounter for adjustment and management of vascular access device (principal); I10 Essential (primary) hypertension; E78.00 Pure hypercholesterolemia, unspecified; J45.909 Unspecified asthma, uncomplicated; F32.9 Major depressive disorder, single episode, unspecified; M19.90 Unspecified osteoarthritis, unspecified site; Z86.73 Personal history of transient ischemic attack (TIA), and cerebral infarction without residual deficits; Z87.891 Personal history of nicotine dependence; Z85.830 Personal history of malignant neoplasm of bone; Z85.038 Personal history of other malignant neoplasm of large intestine; Z79.899 Other long term (current) drug therapy
CPT/HCPCS: 36415; 36591; 80048; 80061; 83036; 85025; G0463; 96374; 96523

== ENCOUNTER → 2020-07-01 | Outpatient (CLI) | payer MEDICARE, OTHER ==
[2019-06-23 08:46] VITALS: BP 162/89
[~2020-07-01] MED LIST changes: -HEPARIN PF 500 UNIT/5 ML DISP.SYRIN. IV ONE; +SIMV20TA18 PO; -SIMV20TA3 PO
--- NOTE | 2020-07-01 17:08 | RAD ---
EXAM: CT CHEST WITHOUT CONTRAST HISTORY: Asthma COMPARISON: CT chest abdomen pelvis 02/14/2015 TECHNIQUE: Helical CT of the chest performed without contrast. Coronal and sagittal reformats were obtained. One or more of the following individualized dose reduction techniques were utilized for this examination: 1. Automated exposure control 2. Adjustment of the mA and/or kV according to patient size 3. Use of iterative reconstruction technique. FINDINGS: Thyroid gland and thoracic inlet: Normal. Heart and great vessels: The heart is normal in size. No pericardial effusion. The thoracic aorta is normal in caliber. A right chest wall port terminates in the distal superior vena cava. Mediastinum and nakia: No lymphadenopathy. Lungs and pleura: Minimal scattered linear atelectasis in the lower lobes and right middle lobe. A few scattered 2 mm pulmonary nodules including a 2 mm subpleural pulmonary nodule in the left upper lobe (image 33, series 3) and a 2 mm pulmonary nodule in the left lower lobe (image 47, series 3) are unchanged from 2015. Lungs are otherwise clear. Airways are clear. No pleural effusion. Chest wall and axillae: Bilateral gynecomastia is noted. No axillary lymphadenopathy. Upper abdomen: Unremarkable. Bones: No acute osseous abnormality. IMPRESSION: 1. No acute abnormality. 2. There are a few tiny scattered pulmonary nodules measuring up to 2 mm, most likely postinfectious/inflammatory and unchanged from 2015, requiring no further follow-up. Electronically signed by: Lucinda Luciano MD (07/01/2020 5:06 PM) [id number]
== END | disposition home or self-care (01) ==
LOC: CT 11:27
PROVIDERS: ATTEND Internal Medicine Pulmonary Disease
DX: J45.909 Unspecified asthma, uncomplicated (principal); R91.8 Other nonspecific abnormal finding of lung field; R93.89 Abnormal findings on diagnostic imaging of other specified body structures; N62 Hypertrophy of breast
CPT/HCPCS: 71250

== ENCOUNTER 2021-04-26 09:55 | Emergency (ER) | payer MEDICARE, OTHER ==
[~2021-04-26] VITALS: Ht 180.3 cm; Wt 82.7 kg
[~2021-04-26 09:55] MED LIST changes: +AMLO-187 PO; -AMLO10TA8 PO; -LISI-334 PO; +LISI10TA16 PO; -LISI10TA2 PO; +LISI20TA18 PO; +METH-561 PO; -METH500T7 PO
[2021-04-26 10:49] VITALS: BP 158/100
[2021-04-26] MEDS ORDERED: LIDOCAINE 2%/EPI 1:100,000 20 ML VIAL. INJ ONE (11:00)
--- NOTE | 2021-04-26 11:08 | ED.ADGEN ---
Past Medical History Past Medical History: High Cholesterol, Hypertension, Migraines, Other Additional Past Medical Histor: CHRONIC BACK PAIN, Sciatica Past Surgical History: Other Additional Past Surgical Histo: lt ARM,BACK X 8,Sinus surgery,FOOT Smoking Status: Former Smoker Alcohol Use: None Drug Use: None General Adult EDM: Chief Complaint: ABSCESS HPI: HPI: Patient is a 66 year old male who presents emergency department with complaints of abscesses in both of his armpits for the last 3 weeks. Patient reports that the abscess in his right axilla drained and is improving. The abscess in the left axilla is extremely tender and has not drained. He denies any fever, chills, body aches, fatigue, abdominal pain, chest pain, shortness of breath, nausea, vomiting, diarrhea, or headache. He currently rates the pain a 5/10 on the pain scale, the pain increases if the area is touched. He denies any alleviating factors stating the pain is constant. Patient states his tetanus is less than 5 years ago. Review of Systems: Review of Systems: Complete ROS is negative unless otherwise noted in HPI. Current Medications: Current Medications Medications (Trade) Dose Ordered Sig/Nicolas Start Time Stop Time Status Last Admin Dose Admin Lidocaine/ Epinephrine (LIDOCAINE 2%-EPI 1:100,000 multi-dose) 20 ml 1X ONCE 04/26/21 11:00 04/26/21 11:02 DC 04/26/21 11:14 20 ML Allergies: Allergies: Allergies Coded Allergies Type Severity Reaction Last Updated Verified nafcillin Allergy Severe Anaphylaxis 06/23/19 Yes cyclobenzaprine Allergy Intermediate blurs eyes 06/23/19 Yes dextromethorphan Allergy Intermediate Rash 06/23/19 Yes ibuprofen Allergy Intermediate Rash 06/23/19 Yes lisinopril Adverse Reaction Intermediate cough 06/23/19 Yes Physical Exam: PE: See Above Constitutional: Well developed, well nourished, no acute distress, non-toxic appearance. [] HENT: Normocephalic, atraumatic, bilateral external ears normal, nose normal. [] Eyes: PERRLA, EOMI, conjunctiva normal, no discharge. [] Neck: Normal range of motion, no stridor. [] Cardiovascular:Heart rate regular rhythm Lungs & Thorax: Respirations even and unlabored, no retractions, no respiratory distress Skin: Warm, dry; 2 cm diameter area of erythema with central fluctuant area and pustule to the right axilla consistent with a cutaneous abscess, 0.5 cm diameter area of erythema without fluctuance or warmth to the left axilla consistent with healing abscess Extremities: No cyanosis, ROM intact, no edema. [] Neurologic: Alert and oriented X 3, no focal deficits noted. [] Psychologic: Affect normal, judgement normal, mood normal. [] Current Patient Data: Vital Signs: Vital Signs Date Time Temp Pulse Resp B/P (MAP) Pulse Ox O2 Delivery O2 Flow Rate FiO2 04/26/21 10:49 97.0 63 20 158/100 (114) Room Air 97.0 EKG: EKG: [] Heart Score: C/O Chest Pain: No Radiology/Procedures: Radiology/Procedures: Indication: abscess Procedure: The patient was positioned appropriately. Local anesthesia was 2% lidocaine with epinephrine]. An incision was then made with an 11 blade scalpel over the apex of the lesion and small amount of bloody pus material was expressed. The wound was explored with Samara forceps, there was no tunneling. The drainage cavity was irrigated and covered with 4 x 4's and paper tape. The patient tolerated the procedure well. Complications: none, minimal blood loss Course & Med Decision Making: Course & Med Decision Making Pertinent Labs and Imaging studies reviewed. (See chart for details) [] Dragon Disclaimer: Dragon Disclaimer: This electronic medical record was generated, in whole or in part, using a voice recognition dictation system. Departure Departure Impression: Primary Impression: Abscess of left axilla Disposition: HOME / SELF CARE / HOMELESS Condition: STABLE Referrals: NO PCP (PCP) Patient Instructions: Abscess, Care After Additional Instructions: Fill the prescription(s) and use as directed. You may take tylenol or ibuprofen as needed for pain. Leave the Dressing that was placed in the ER in place for the next 24 hours, then change the dressing twice daily and apply antibiotic ointment as needed. You may apply warm, moist packs to the area to help decrease discomfort. Follow up with your primary care doctor or return to the ER in 48 hours to have wound rechecked. Return to the ER sooner if your symptoms worsen or fever develops. Scripts Cephalexin (CEPHALEXIN) 500 Mg Capsule 1 CAP PO QID for 7 Days, #28 CAP 0 Refills Prov: BOGUSLAW,MARY BETH D RETAIL SALES ADVISOR 04/26/21 MARY BETH RIDDLE APRN Apr 26, 2021 11:07
[2021-04-26] MEDS ORDERED: CEPH500C PO (11:37)
== END 2021-04-26 11:56 | disposition home or self-care (01) ==
LOC: ER 09:55
DX: L02.411 Cutaneous abscess of right axilla (principal); E78.00 Pure hypercholesterolemia, unspecified; I10 Essential (primary) hypertension; G43.909 Migraine, unspecified, not intractable, without status migrainosus; G89.29 Other chronic pain; Z88.1 Allergy status to other antibiotic agents; Z88.8 Allergy status to other drugs, medicaments and biological substances
CPT/HCPCS: 10060; 99283; J3490